=== PATIENT | female | born 2000 | race Caucasian/White ===

== ENCOUNTER 2024-02-24 00:22 | Emergency (ER) | payer SELFPAY ==
[2024-02-24 00:24] VITALS: BP 149/85; PULSE 107; RESP 18; TEMP 36.4; O2SAT 94; BMI 27.8
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
--- NOTE | 2024-02-24 00:50 | CT_ITS ---
INDICATION: injury EXAMINATION: CT CERVICAL SPINE - CT Spine Cervical W/O Contrast Injection TECHNIQUE: Helically acquired images were obtained of the cervical spine. 2D reformatted images were reviewed. The protocol utilizes one or more of the following dose reduction techniques: automated exposure control, adjustment of mA and/or kV according to patient size,and/or use of iterative reconstruction technique. IV Contrast dosage and agent: None. RADIATION DOSAGE (If Supplied By Facility): CTDIvol = ( 21.91 ) mGy, DLP = ( 436.26 ) mGycm COMPARISON: FINDINGS: ALIGNMENT: No subluxation. MINERALIZATION: Normal. VERTEBRAL BODIES: No fracture or acute abnormality. DISC SPACES: Unremarkable. POSTERIOR ELEMENTS: Unremarkable. SPINAL CANAL: Maintained. PARASPINAL SOFT TISSUES: Unremarkable. OTHER: None. CT/Spine Cervical without Contras IMPRESSION: No evidence of fracture or subluxation. Electronically Signed: Ana Ladd MD at 1:58 EDT ,
--- NOTE | 2024-02-24 00:50 | CT_ITS ---
INDICATION: injury EXAMINATION: CT FACIAL BONES - CT Maxillofacial W/O Contrast Injection TECHNIQUE: Helically acquired images were obtained of the facial bones. A radiation dose optimization technique was used for this scan. The protocol utilizes one or more of the following dose reduction techniques: automated exposure control, adjustment of mA and/or kV according to patient size,and/or use of iterative reconstruction technique. IV Contrast dosage and agent: None. RADIATION DOSAGE (If Supplied By Facility): CTDIvol = ( 29.38 ) mGy, DLP = ( 584.19 ) mGycm COMPARISON: FINDINGS: ORBITS: No fracture demonstrated. Globes appear intact. No retrobulbar hematoma. NASAL BONES: Unremarkable. NASOETHMOID COMPLEX: Unremarkable. ZYGOMATIC ARCHES: Unremarkable. MAXILLAE: Unremarkable. PTERYGOID PLATES: Unremarkable. MANDIBLE: No fracture demonstrated. No dislocation at the temporomandibular joints. SINUSES: Clear. SOFT TISSUES: Unremarkable. OTHER: None. CT/Sinus/Facial Bone IMPRESSION: No evidence of fracture. Electronically Signed: Ana Ladd MD at 2:05 EDT ,
--- NOTE | 2024-02-24 00:50 | RAD_ITS ---
INDICATION: pain EXAMINATION/TECHNIQUE: X-RAY - XR Spine Thoracic 3 Views COMPARISON: FINDINGS: The vertebral bodies are normal in height. No definite fracture demonstrated. No subluxation. No paravertebral soft tissue mass identified. RAD/Thoracic Spine 3 Views IMPRESSION: No evidence of fracture or subluxation. Electronically Signed: Ana Ladd MD at 3:25 EDT ,
--- NOTE | 2024-02-24 00:50 | RAD_ITS ---
INDICATION: pain EXAMINATION/TECHNIQUE: X-RAY - XR Chest 2 Views COMPARISON: None. FINDINGS: LINES/DEVICES: None. LUNGS: No consolidation. No pneumothorax. MEDIASTINUM: Unremarkable. CARDIAC SILHOUETTE: Not enlarged. BONES AND SOFT TISSUES: No acute abnormalities. RAD/Chest PA and Lateral IMPRESSION: No evidence of active intrathoracic disease. Electronically Signed: Aan Ladd MD at 3:00 EDT ,
--- NOTE | 2024-02-24 00:50 | RAD_ITS ---
INDICATION: pain EXAMINATION/TECHNIQUE: X-RAY - XR Pelvis 1 or 2 Views COMPARISON: FINDINGS: Single view pelvis. No fracture demonstrated. Femoral heads are normal in contour. No dislocation at the hips. RAD/Pelvis 1 or 2 Views IMPRESSION: No evidence of fracture on single view pelvis. Electronically Signed: Ana Ladd MD at 3:23 EDT ,
--- NOTE | 2024-02-24 01:10 | RAD_ITS ---
INDICATION: pain EXAMINATION/TECHNIQUE: X-RAY - XR Spine Lumbar 2 or 3 Views COMPARISON: FINDINGS: The vertebral bodies are normal in height. No definite fracture demonstrated. No subluxation. No paravertebral soft tissue mass identified. RAD/Lumbar Spine 2 or 3 Views IMPRESSION: No evidence of fracture or subluxation. Electronically Signed: Ana Ladd MD at 3:25 EDT ,
[2024-02-24 02:22] VITALS: BP 125/85; PULSE 107; RESP 17; O2SAT 98
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
[2024-02-24 03:51] VITALS: BP 133/86; PULSE 99; RESP 20; TEMP 36.9; O2SAT 99
== END 2024-02-24 03:52 | disposition home or self-care (01) ==
PROVIDERS: Emergency Provider Emergency Medicine; Visit Provider Emergency Medicine
DX: S09.90XA Unspecified injury of head, initial encounter (principal); F17.210 Nicotine dependence, cigarettes, uncomplicated; V48.6XXA Car passenger injured in noncollision transport accident in traffic accident, initial encounter; S00.83XA Contusion of other part of head, initial encounter
CPT/HCPCS: 70450; 70486; 71046; 72072; 72100; 72125; 72170; 99282